=== PATIENT | male | born 1985 | race Caucasian/White ===

== ENCOUNTER 2017-07-26 23:05 | Emergency (ER) | payer MEDICAID ==
[2017-07-26] MEDS ORDERED: Aspirin 81 mg CHEW TAB* 81 MG TAB.CHEW PO ONE (23:48)
[2017-07-26 23:50] LABS: ABS Basophils 0 10^3/ul (0-0.2); ABS Eosinophils 0.1 10^3/ul (0-0.6); ABS Lymphocytes 1.9 10^3/ul (1.0-4.8); ABS Monocytes 0.5 10^3/ul (0-0.8); ABS Neutrophils 2.1 10^3/ul (1.5-7.7); ABS Nucleated RBC 0 10^3/ul; Eosinophil % 1.4 % (0-6); Hematocrit 38 % (42-52); Hemoglobin 13.1 g/dl (14.0-18.0); Mean Corpuscular HGB Conc 34 g/dl (31-36); Mean Corpuscular Hemoglobin 30 pg (27-31); Mean Corpuscular Volume 89 fL (80-94); Mean Platelet Volume 7.4 um3 (7.4-10.4); Nucleated Red Blood Cells % 0; Platelet Count 238 10^3/ul (150-450); Red Cell Distribution Width 13 % (10.5-15); White Blood Count 4.6 10^3/ul (3.5-10.8)
[2017-07-26 23:58] LABS: INR 1.06 (0.77-1.02)
[2017-07-27 00:07] LABS: EGFR Non-African American 88.1 (>60)
[2017-07-27] MEDS ORDERED: NS 0.9% 1000 ML* 1,000 ML IV ONE (00:14)
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
[2017-07-27 00:51] LABS: Urine Appearance Clear; Urine Blood Negative (Negative); Urine Color Yellow; Urine Ketones Negative (Negative); Urine Protein Negative (Negative); Urine Specific Gravity 1.024 (1.010-1.030); Urine Urobilinogen Negative (Negative)
[2017-07-27 01:28] VITALS: BP 142/91
--- NOTE | 2017-07-27 08:32 | RAD ---
INDICATION: Chest pain, shortness of breath, tobacco use. COMPARISON: June 27, 2015 TECHNIQUE: Dual energy PA and routine lateral views of the chest were obtained. REPORT: Unchanged mild pleural parenchymal scarring at the peripheral RIGHT lung base without concern. Elevated lung volumes. No suspicious focal pulmonary lesion, alveolar consolidation, pleural effusion, pneumothorax. The heart, pulmonary vasculature, and mediastinal contours are unremarkable. Unremarkable soft tissue contours and osseous structures. IMPRESSION: Elevated lung volumes suggest obstructive lung disease. No acute cardiopulmonary process evident.
== END 2017-07-27 01:26 | disposition home or self-care (01) ==
LOC: ED 23:05
DX: F14.90 Cocaine use, unspecified, uncomplicated (principal); R07.9 Chest pain, unspecified; F17.210 Nicotine dependence, cigarettes, uncomplicated
CPT/HCPCS: 36415; 71046; 80053; 80307; 81003; 82550; 83605; 83735; 83880; 84484; 85025; 85379; 85610; 93005; 99284; A9270-GY

== ENCOUNTER 2017-12-31 18:52 | Emergency (ER) | payer MEDICAID ==
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
[2017-12-31 19:28] VITALS: BP 169/94
[2017-12-31] MEDS ORDERED: Lidocaine 2% W/EPI 1:100,000* 20 ML MDV INJ ONE (19:31)
[2017-12-31] MEDS ORDERED: Amoxicillin PO (*) 500 MG CAP PO ONE (19:40)
--- NOTE | 2017-12-31 20:03 | UC ---
- Progress Note Progress Note: I supervised the care of the physician assistant program manager and I performed a history of physical on this patient. I performed the patient's procedure. History: Dental pain with multiple erosions Physical exam: Multiple revisions and previous extractions through the right lower jaw. The remaining molar is eroded to the gumline. There is some gingival hyperplasia Plan: NSAID, antibiotic and dental block performed by me Procedure: Inferior alveolar nerve block for dental pain Description: A timeout was performed. An inferior alveolar nerve block was performed with a total left 2.5 cc of 2% lidocaine with epinephrine. He tolerated this well with pain relief. There were no complications. Course/Dx - Diagnoses Provider Diagnoses: Pain due to dental caries Discharge - Sign-Out/Discharge Documenting (check all that apply): Patient Departure All imaging exams completed and their final reports reviewed: No Studies - Discharge Plan Condition: Stable Disposition: HOME Prescriptions: Amoxicillin PO (*) [Amoxicillin 875 MG (*)] 875 mg PO BID 10 Days #20 tab Patient Education Materials: Toothache (ED) Referrals: Shanon Kraft TURBINE TECHNICIAN [Primary Care Provider] - If Needed Additional Instructions: FOLLOW UP WITH DENTAL SOON POSSIBLE-CALL IN AM. LIST OF DENTISTS PROVIDED. - Billing Disposition and Condition Condition: STABLE Disposition: Home - Attestation Statements Document Initiated by Scribe: Natalya
== END 2017-12-31 20:14 | disposition home or self-care (01) ==
LOC: UCCORT 18:52
DX: K02.9 Dental caries, unspecified (principal); I25.2 Old myocardial infarction; F17.210 Nicotine dependence, cigarettes, uncomplicated
CPT/HCPCS: 99212; A9270-GY; G0463

== ENCOUNTER 2022-04-22 14:58 | Inpatient (IN) ==
[2022-04-22] MEDS ORDERED: Lactated Ringers 1000 ml BAG 1,000 ML IV ONE (15:26)
[2022-04-22] MEDS ORDERED: Cefepime 1 GM in Dextrose 1 GM/50 ML BAG IV ONE ×2 (16:51→23:27)
[2022-04-22] MEDS ORDERED: Vancomycin 1,500 MG in NS 0.9% 250 ml 250 ML IVPB ONE (16:51)
[2022-04-22 16:53] LABS: Venous Bicarbonate HCO3 29.4 mmol/L (24-28)
[2022-04-22 16:54] LABS: ABS Lymphocytes 1.2 10^3/ul (1.0-4.8); ABS Monocytes 1.2 10^3/ul (0-0.8); Eosinophil % 0.4 %; Hematocrit 30 % (42-52); Hemoglobin 10.3 g/dL (14.0-18.0); Mean Corpuscular HGB Conc 34 g/dL (31-36); Mean Corpuscular Hemoglobin 30 pg (27-31); Mean Corpuscular Volume 87 fL (80-94); Mean Platelet Volume 7.5 fL (7.4-10.4); Platelet Count 351 10^3/uL (150-450); Red Blood Count 3.48 10^6 /uL (4.18-5.48); Red Cell Distribution Width 13 % (10-15); White Blood Count 13.5 10^3/uL (3.5-10.8)
[2022-04-22 17:10] LABS: Activated Partial Thrombo Time 33.7 seconds (26.0-38.0); INR 1.67 (0.88-1.18)
[2022-04-22 17:40] LABS: Albumin 2.9 g/dL (3.2-5.2); Albumin/Globulin Ratio 0.9 (1-3); C Reactive Protein 190.16 mg/L (<8.01); Globulin 3.2 g/dL (2-4); Potassium 3.7 mmol/L (3.5-5.0); Total Bilirubin 0.4 mg/dL (0.2-1.0); Total Protein 6.1 g/dL (6.4-8.9); eGFR CKD-EPI 114.5 (>60)
[2022-04-22] MEDS ORDERED: Iohexol 350 (CONTRAST) 500 ML MDV IV ONE (17:43)
[2022-04-22 18:16] LABS: High Sensitivity Troponin 1 Hr 3 pg/mL (<20)
[2022-04-22] MEDS: Enoxaparin 40 MG/0.4 ML SYR SUBCUT SCH (21:49)
[2022-04-22] MEDS: metroNIDAZOLE IV 500 MG/100ML 500 MG/100 ML BAG IVPB SCH (21:49)
[2022-04-22] MEDS ORDERED: Buprenorp/Nalox 8-2 MG FILM SL FILM ONE (23:23)
[2022-04-22] MEDS ORDERED: Buprenorp/Nalox 4-1 MG FILM SL FILM ONE (23:23)
[2022-04-23 00:26] LABS: High Sensitivity Troponin 3 Hr 6 pg/mL (<20)
[2022-04-23] MEDS ORDERED: Vancomycin 1,500 MG in NS 0.9% 250 ml 250 ML IVPB ONE (03:28)
[2022-04-23] MEDS ORDERED: Vancomycin per Pharmacy 1 EA NOTE FOLLOW UP PRN (03:52)
[2022-04-23] MEDS: Buprenorp/Nalox 8-2 MG FILM SL FILM SCH ×2 (07:36→17:19)
[2022-04-23] MEDS: metroNIDAZOLE IV 500 MG/100ML 500 MG/100 ML BAG IVPB SCH ×3 (07:38→21:44)
[2022-04-23 09:00] LABS: ABS Eosinophils 0.1 10^3/ul (0-0.6); ABS Lymphocytes 1.2 10^3/ul (1.0-4.8); ABS Monocytes 0.9 10^3/ul (0-0.8); ABS Neutrophils 8.7 10^3/ul (1.5-7.7); Eosinophil % 0.7 %; Hematocrit 29 % (42-52); Lymphocyte % 10.8 %; Mean Corpuscular HGB Conc 34 g/dL (31-36); Mean Corpuscular Hemoglobin 30 pg (27-31); Mean Corpuscular Volume 87 fL (80-94); Mean Platelet Volume 7.2 fL (7.4-10.4); Platelet Count 327 10^3/uL (150-450); Red Blood Count 3.35 10^6 /uL (4.18-5.48); Red Cell Distribution Width 13 % (10-15); White Blood Count 10.9 10^3/uL (3.5-10.8)
[2022-04-23 09:33] LABS: Albumin 2.4 g/dL (3.2-5.2); C Reactive Protein 174.71 mg/L (<8.01); Calcium 7.3 mg/dL (8.6-10.3); Globulin 2.5 g/dL (2-4); Magnesium 1.8 mg/dL (1.9-2.7); Potassium 3.6 mmol/L (3.5-5.0); Total Bilirubin 0.4 mg/dL (0.2-1.0); Total Protein 4.9 g/dL (6.4-8.9); eGFR CKD-EPI 123.7 (>60)
[2022-04-23] MEDS: Cefepime 2 GM in Dextrose 2 GM/50 ML BAG IV SCH ×2 (11:32→23:27)
[2022-04-23] MEDS: Vancomycin 1,250 MG in NS 0.9% 250 ml 250 ML IVPB SCH (17:19)
[2022-04-23] MEDS: Enoxaparin 40 MG/0.4 ML SYR SUBCUT SCH (21:57)
[2022-04-24] MEDS: Vancomycin 1,250 MG in NS 0.9% 250 ml 250 ML IVPB SCH ×3 (00:23→15:51)
[2022-04-24] MEDS: metroNIDAZOLE IV 500 MG/100ML 500 MG/100 ML BAG IVPB SCH ×3 (05:01→21:31)
[2022-04-24] MEDS ORDERED: Vancomycin Trough Check NOTE FOLLOW UP ONE (07:30)
[2022-04-24] MEDS: Buprenorp/Nalox 8-2 MG FILM SL FILM SCH ×2 (09:12→15:51)
[2022-04-24 14:02] LABS: ABS Eosinophils 0.1 10^3/ul (0-0.6); ABS Monocytes 0.7 10^3/ul (0-0.8); Eosinophil % 0.6 %; Hematocrit 31 % (42-52); Hemoglobin 10.6 g/dL (14.0-18.0); Lymphocyte % 7.8 %; Mean Corpuscular HGB Conc 34 g/dL (31-36); Mean Corpuscular Hemoglobin 29 pg (27-31); Mean Corpuscular Volume 87 fL (80-94); Mean Platelet Volume 7.1 fL (7.4-10.4); Platelet Count 397 10^3/uL (150-450); Red Blood Count 3.63 10^6 /uL (4.18-5.48); Red Cell Distribution Width 13 % (10-15); White Blood Count 12.8 10^3/uL (3.5-10.8)
[2022-04-24] MEDS: Cefepime 2 GM in Dextrose 2 GM/50 ML BAG IV SCH ×2 (14:35→22:54)
[2022-04-24 14:40] LABS: C Reactive Protein 141.55 mg/L (<8.01); Calcium 7.6 mg/dL (8.6-10.3); Magnesium 1.9 mg/dL (1.9-2.7); Potassium 4.2 mmol/L (3.5-5.0); eGFR CKD-EPI 128.7 (>60)
[2022-04-24] MEDS: BUPRENORPHINE NALOXONE SL SCH ×2 (14:47→14:48)
[2022-04-24] MEDS: Enoxaparin 40 MG/0.4 ML SYR SUBCUT SCH (21:31)
[2022-04-25] MEDS: metroNIDAZOLE IV 500 MG/100ML 500 MG/100 ML BAG IVPB SCH ×2 (05:18→14:14)
[2022-04-25] MEDS ORDERED: Vancomycin Trough Check NOTE FOLLOW UP ONE (07:30)
[2022-04-25] MEDS: Buprenorp/Nalox 8-2 MG FILM SL FILM SCH (10:21)
[2022-04-25] MEDS: Vancomycin 1,250 MG in NS 0.9% 250 ml 250 ML IVPB SCH ×3 (10:22→15:28)
[2022-04-25 11:51] VITALS: BP 102/59
[2022-04-25] MEDS: Cefepime 2 GM in Dextrose 2 GM/50 ML BAG IV SCH (14:13)
[2022-04-26] MEDS ORDERED: Vancomycin Trough Check NOTE FOLLOW UP ONE (07:30)
[2022-04-27 15:34] LABS: Fungitell Qualitative Result Negative (Negative); Fungitell Quantitative Value <31 pg/mL (<60 pg/mL)
== END 2022-04-25 16:40 | disposition home or self-care (01) | DRG 139 ==
LOC: EDHOLD 14:58 → ED 14:58 → SUATTDRO 20:45 → EDHOLD 23:43 → SUATTDRO 04-23 01:50 → MED 04-23 15:20
PROVIDERS: ADMIT Internal Medicine; ATTEND Internal Medicine

== ENCOUNTER 2022-11-30 12:57 | Inpatient (IN) ==
[2022-11-30] MEDS ORDERED: Ondansetron 4 mg VIAL 2 MG/ML 2 ml VIAL IV PRN ×2 (14:25→15:24)
[2022-11-30] MEDS ORDERED: HYDROcodone/ACETAMIN 5/325 mg TAB PO PRN ×2 (14:32→15:24)
[2022-11-30] MEDS ORDERED: Lidocaine 2% PF 5 ML VIAL ONE (14:45)
[2022-11-30] MEDS ORDERED: Midazolam 2 mg/2 ml VIAL 1 mg/ml 2 ml VIAL (2 mg) ONE (14:45)
[2022-11-30] MEDS ORDERED: Ondansetron 4 mg VIAL 2 MG/ML 2 ml VIAL ONE (14:45)
[2022-11-30] MEDS ORDERED: Propofol 10 MG/ML 20 ML BTL ONE (14:45)
[2022-11-30] MEDS ORDERED: Dexamethasone IV 4 MG/ML VIAL 1 ml VIAL ONE (14:45)
[2022-11-30] MEDS ORDERED: fentaNYL 100 mcg/2 ml 50 MCG/ML VIAL ONE ×4 (14:45→18:13)
[2022-11-30] MEDS ORDERED: ceFAZolin 2 GM in NS PREMIX 2 GM/100 ML BAG IVPB ONE (14:51)
[2022-11-30] MEDS ORDERED: Rocuronium 50 mg VIAL 10 mg/ml 5 ml VIAL (50 mg) ONE (15:18)
[2022-11-30] MEDS ORDERED: fentaNYL 100 mcg/2 ml 50 MCG/ML VIAL IV PRN (15:24)
[2022-11-30] MEDS ORDERED: Metoclopramide 5 MG/ML VIAL (10 mg) IV PRN (15:24)
[2022-11-30] MEDS ORDERED: Naloxone 0.4 mg VIAL 0.4 mg/ml 1 ml VIAL IV PRN (15:24)
[2022-11-30 16:03] LABS: Rapid COVID-19 Molecular Undetected (Undetected)
[2022-11-30] MEDS ORDERED: Acetaminophen IV 1 GM/100ML 1,000 MG/100 ML BAG IV ONE (16:11)
[2022-11-30] MEDS ORDERED: Bupivacaine 0.5% 50 ML MDV VIAL ONE (16:54)
[2022-11-30] MEDS ORDERED: HYDROmorphone 0.5 MG/0.5 ML SYRINGE ONE (17:21)
[2022-11-30] MEDS ORDERED: ROPIVACAINE 5 MG/ML 30 ML BTL (0.5%) ONE (17:56)
[2022-11-30] MEDS: fentaNYL 100 mcg/2 ml 50 MCG/ML VIAL IV PRN ×7 (18:00→18:41)
[2022-11-30] MEDS ORDERED: oxyCODONE/Acetamin 5/325 mg TAB ONE (18:32)
[2022-11-30] MEDS: oxyCODONE/Acetamin 5/325 mg TAB PO PRN (18:33)
[2022-11-30] MEDS ORDERED: Vancomycin per Pharmacy 1 EA NOTE FOLLOW UP PRN (20:21)
[2022-11-30] MEDS: cefTRIAXone 1 gm/50 mL D5W 1 GM/50 ML BAG IV SCH (20:36)
[2022-11-30] MEDS ORDERED: Vancomycin 1,250 MG in NS 0.9% 250 ml 250 ML IVPB ONE (21:00)
[2022-12-01] MEDS: oxyCODONE/Acetamin 5/325 mg TAB PO PRN ×6 (00:20→21:38)
[2022-12-01] MEDS ORDERED: Morphine 2 MG/ML SYRINGE IV PRN ×2 (08:34→14:21)
[2022-12-01] MEDS ORDERED: oxyCODONE/Acetamin 5/325 mg TAB ONE (08:46)
[2022-12-01] MEDS ORDERED: Morphine 2 MG/ML SYRINGE ONE ×2 (08:46→14:34)
[2022-12-01 09:42] LABS: ABS Basophils 0.1 10^3/uL (0.0-0.1); ABS Eosinophils 0.1 10^3/uL (0.0-0.5); ABS Lymphocytes 1.7 10^3/uL (1.0-4.8); ABS Monocytes 0.8 10^3/uL (0.0-1.1); ABS Neutrophils 7.3 10^3/uL (1.5-7.6); ABS Nucleated RBC 0.01 10^3/ul; Eosinophil % 0.7 %; Hematocrit 22.3 % (38-53); Hemoglobin 7.8 g/dL (13.2-16.3); Lymphocyte % 16.7 %; Mean Corpuscular Hemoglobin 30.3 pg (27-33); Mean Corpuscular Hgb Conc 34.9 g/dL (31-36); Mean Corpuscular Volume 86.8 fL (80-97); Nucleated Red Blood Cells % 0.1 /100 WBC (0.0-0.4); Platelet Count 412 10^3/uL (150-450); Red Blood Count 2.57 10^6/uL (4.06-5.63); Red Cell Distribution Width 14.5 % (12-17)
[2022-12-01] MEDS: Vancomycin 750 MG in NS 0.9% 250 ML IVPB SCH ×3 (09:52→23:43)
[2022-12-01 09:57] LABS: Albumin 2.5 g/dL (3.2-5.2); Albumin/Globulin Ratio 0.6 (1-3); Creatinine, Serum 0.62 mg/dL (0.67-1.17); Globulin 4.4 g/dL (2-4); Potassium 3.4 mmol/L (3.5-5.0); Total Bilirubin 0.2 mg/dL (0.2-1.0); Total Protein 6.9 g/dL (6.4-8.9); eGFR CKD-EPI 124.7 (>60)
[2022-12-01] MEDS ORDERED: Potassium Chlor 20 meq TAB.ER PO ONE (13:49)
[2022-12-01] MEDS ORDERED: Morphine 4 MG/ML VIAL (1 ml) ONE (15:35)
[2022-12-01] MEDS: cefTRIAXone 1 gm/50 mL D5W 1 GM/50 ML BAG IV SCH (21:33)
[2022-12-01] MEDS ORDERED: Nicotine Lozenge mini 4 MG LOZNG.MINI MT PRN (22:39)
[2022-12-01] MEDS ORDERED: Nicotine GUM 4MG FRUIT FLAVOR PO PRN (22:39)
[2022-12-02] MEDS: oxyCODONE/Acetamin 5/325 mg TAB PO PRN ×4 (02:07→23:52)
[2022-12-02] MEDS ORDERED: Vancomycin Trough Check NOTE FOLLOW UP ONE (07:30)
[2022-12-02 08:21] LABS: ABS Basophils 0.1 10^3/uL (0.0-0.1); ABS Eosinophils 0.1 10^3/uL (0.0-0.5); ABS Lymphocytes 1.4 10^3/uL (1.0-4.8); ABS Monocytes 0.8 10^3/uL (0.0-1.1); ABS Neutrophils 8.9 10^3/uL (1.5-7.6); ABS Nucleated RBC 0.01 10^3/ul; Eosinophil % 0.5 %; Hematocrit 25.6 % (38-53); Hemoglobin 8.7 g/dL (13.2-16.3); Lymphocyte % 12.1 %; Mean Corpuscular Hemoglobin 29.6 pg (27-33); Mean Corpuscular Hgb Conc 33.9 g/dL (31-36); Mean Corpuscular Volume 87.1 fL (80-97); Platelet Count 519 10^3/uL (150-450); Red Blood Count 2.94 10^6/uL (4.06-5.63); Red Cell Distribution Width 14.6 % (12-17); White Blood Count 11.2 10^3/uL (3.6-10.2)
[2022-12-02 08:29] LABS: Anion Gap 12 mmol/L (2-16); Blood Urea Nitrogen 5 mg/dL (6-24); C Reactive Protein 174.71 mg/L (<8.01); CO2 Carbon Dioxide 25 mmol/L (22-32); Calcium 8.5 mg/dL (8.6-10.3); Chloride 97 mmol/L (101-111); Creatinine, Serum 0.63 mg/dL (0.67-1.17); Glucose 97 mg/dL (70-100); Sodium 134 mmol/L (135-145); eGFR CKD-EPI 124.1 (>60)
[2022-12-02 09:15] LABS: % Iron Saturation 8 % (15-55); .Transferrin 173 mg/dL (203-362); Iron < 20 ug/dL (50-212); Total Iron Binding Capacity 242 mcg/dL (250-450); Unsaturated Iron Binding 222 ug/dL
[2022-12-02] MEDS: Vancomycin 750 MG in NS 0.9% 250 ML IVPB SCH (09:23)
[2022-12-02 09:37] LABS: Ferritin 243.7 ng/mL (24-336)
[2022-12-02] MEDS ORDERED: Vancomycin 1000 MG in NS 0.9% 250 ML IVPB SCH (15:00)
[2022-12-02] MEDS: Vancomycin 1000 MG in NS 0.9% 250 ML IVPB SCH (18:07)
[2022-12-02] MEDS: cefTRIAXone 1 gm/50 mL D5W 1 GM/50 ML BAG IV SCH (20:08)
[2022-12-03] MEDS: Vancomycin 1000 MG in NS 0.9% 250 ML IVPB SCH ×3 (00:41→13:18)
[2022-12-03] MEDS: oxyCODONE/Acetamin 5/325 mg TAB PO PRN ×3 (06:41→21:10)
[2022-12-03] MEDS ORDERED: Morphine 2 MG/ML SYRINGE IV ONE (08:19)
[2022-12-03] MEDS ORDERED: Lidocaine 1% MPF 5 ML VIAL INJ ONE (08:36)
[2022-12-03] MEDS ORDERED: Vancomycin Trough Check NOTE FOLLOW UP ONE (11:30)
[2022-12-03 16:46] LABS: ABS Basophils 0.1 10^3/uL (0.0-0.1); ABS Eosinophils 0.1 10^3/uL (0.0-0.5); ABS Lymphocytes 1.7 10^3/uL (1.0-4.8); ABS Monocytes 0.6 10^3/uL (0.0-1.1); Eosinophil % 1.9 %; Hematocrit 26.7 % (38-53); Hemoglobin 8.9 g/dL (13.2-16.3); Lymphocyte % 22.8 %; Mean Corpuscular Hemoglobin 29.4 pg (27-33); Mean Corpuscular Hgb Conc 33.3 g/dL (31-36); Mean Corpuscular Volume 88.2 fL (80-97); Mean Platelet Volume 6.5 fL (7.5-11.2); Nucleated Red Blood Cells % 0.1 /100 WBC (0.0-0.4); Platelet Count 645 10^3/uL (150-450); Red Blood Count 3.02 10^6/uL (4.06-5.63); Red Cell Distribution Width 14.9 % (12-17); White Blood Count 7.6 10^3/uL (3.6-10.2)
[2022-12-03] MEDS ORDERED: ROPIVACAINE 5 MG/ML 30 ML BTL (0.5%) ONE (16:54)
[2022-12-03] MEDS ORDERED: Midazolam 5 mg/5 ml VIAL 1 mg/ml 5 ml VIAL (5 mg) ONE (16:55)
[2022-12-03] MEDS ORDERED: fentaNYL 100 mcg/2 ml 50 MCG/ML VIAL ONE ×2 (16:55→17:34)
[2022-12-03] MEDS ORDERED: Lidocaine 2% PF 5 ML VIAL ONE (17:34)
[2022-12-03] MEDS ORDERED: Propofol 10 MG/ML 20 ML BTL ONE (17:34)
[2022-12-03] MEDS ORDERED: Midazolam 2 mg/2 ml VIAL 1 mg/ml 2 ml VIAL (2 mg) ONE (17:35)
[2022-12-03] MEDS ORDERED: Bupivacaine 0.5% 50 ML MDV VIAL ONE (18:03)
[2022-12-03] MEDS ORDERED: Sevoflurane BOTTLE ONE (18:27)
[2022-12-03] MEDS ORDERED: Naloxone 0.4 mg VIAL 0.4 mg/ml 1 ml VIAL IV PRN (18:34)
[2022-12-03] MEDS ORDERED: oxyCODONE/Acetamin 5/325 mg TAB PO PRN (18:34)
[2022-12-03] MEDS ORDERED: HYDROmorphone 1 MG/1 ML SYRINGE IV PRN (18:34)
[2022-12-03] MEDS ORDERED: Ondansetron 4 mg VIAL 2 MG/ML 2 ml VIAL ONE (18:53)
[2022-12-03] MEDS ORDERED: Dexamethasone IV 4 MG/ML VIAL 1 ml VIAL ONE (18:53)
[2022-12-03] MEDS ORDERED: HYDROmorphone 1 MG/1 ML SYRINGE ONE (20:04)
[2022-12-03] MEDS ORDERED: LACTATED RINGERS 1000 ML BAG IV SCH (22:00)
[2022-12-04] MEDS: Vancomycin 1000 MG in NS 0.9% 250 ML IVPB SCH ×5 (01:13→20:15)
[2022-12-04] MEDS: oxyCODONE/Acetamin 5/325 mg TAB PO PRN ×4 (03:11→22:14)
[2022-12-04 07:05] LABS: ABS Basophils 0.1 10^3/uL (0.0-0.1); ABS Lymphocytes 1.5 10^3/uL (1.0-4.8); ABS Monocytes 0.5 10^3/uL (0.0-1.1); ABS Neutrophils 6.3 10^3/uL (1.5-7.6); ABS Nucleated RBC 0.01 10^3/ul; Eosinophil % 0.5 %; Hemoglobin 9.5 g/dL (13.2-16.3); Lymphocyte % 17.7 %; Mean Corpuscular Hemoglobin 29.5 pg (27-33); Mean Corpuscular Hgb Conc 33.8 g/dL (31-36); Mean Corpuscular Volume 87.3 fL (80-97); Mean Platelet Volume 6.8 fL (7.5-11.2); Nucleated Red Blood Cells % 0.1 /100 WBC (0.0-0.4); Platelet Count 620 10^3/uL (150-450); Red Blood Count 3.21 10^6/uL (4.06-5.63); Red Cell Distribution Width 14.8 % (12-17); White Blood Count 8.5 10^3/uL (3.6-10.2)
[2022-12-04 07:18] LABS: C Reactive Protein 101.35 mg/L (<8.01); Creatinine, Serum 0.68 mg/dL (0.67-1.17); Potassium 4.8 mmol/L (3.5-5.0); eGFR CKD-EPI 121.3 (>60)
[2022-12-04] MEDS ORDERED: Vancomycin Trough Check NOTE FOLLOW UP ONE (11:30)
[2022-12-04] MEDS: Enoxaparin 40 MG/0.4 ML SYR SUBCUT SCH (11:53)
[2022-12-05] MEDS: Vancomycin 1000 MG in NS 0.9% 250 ML IVPB SCH ×4 (03:53→20:52)
[2022-12-05] MEDS: oxyCODONE/Acetamin 5/325 mg TAB PO PRN ×5 (03:58→23:16)
[2022-12-05] MEDS: Enoxaparin 40 MG/0.4 ML SYR SUBCUT SCH (13:09)
[2022-12-05] MEDS ORDERED: Vancomycin Trough Check NOTE FOLLOW UP ONE (20:30)
[2022-12-06] MEDS: Vancomycin 1000 MG in NS 0.9% 250 ML IVPB SCH ×3 (03:03→15:34)
[2022-12-06] MEDS: oxyCODONE/Acetamin 5/325 mg TAB PO PRN ×2 (05:41→21:29)
[2022-12-06] MEDS ORDERED: Vancomycin Trough Check NOTE FOLLOW UP ONE (08:30)
[2022-12-06 09:23] LABS: Hemoglobin 9.4 g/dL (13.2-16.3); Mean Corpuscular Hemoglobin 29.6 pg (27-33); Mean Corpuscular Hgb Conc 33.7 g/dL (31-36); Mean Corpuscular Volume 87.7 fL (80-97); Mean Platelet Volume 6.4 fL (7.5-11.2); Platelet Count 558 10^3/uL (150-450); Red Blood Count 3.19 10^6/uL (4.06-5.63); Red Cell Distribution Width 14.6 % (12-17); White Blood Count 7.5 10^3/uL (3.6-10.2)
[2022-12-06 09:44] LABS: C Reactive Protein 26.66 mg/L (<8.01); Calcium 9.1 mg/dL (8.6-10.3); Creatinine, Serum 0.65 mg/dL (0.67-1.17); Potassium 4.3 mmol/L (3.5-5.0); eGFR CKD-EPI 122.9 (>60)
[2022-12-06] MEDS: Enoxaparin 40 MG/0.4 ML SYR SUBCUT SCH (12:14)
[2022-12-07] MEDS: Vancomycin 1,500 MG in NS 0.9% 250 ml 250 ML IVPB SCH ×2 (06:15→19:30)
[2022-12-07] MEDS: oxyCODONE/Acetamin 5/325 mg TAB PO PRN ×2 (06:20→18:40)
[2022-12-07 06:32] LABS: Hematocrit 27.8 % (38-53); Hemoglobin 9.4 g/dL (13.2-16.3); Mean Corpuscular Hemoglobin 29.5 pg (27-33); Mean Corpuscular Hgb Conc 33.7 g/dL (31-36); Mean Corpuscular Volume 87.4 fL (80-97); Mean Platelet Volume 6.4 fL (7.5-11.2); Platelet Count 567 10^3/uL (150-450); Red Blood Count 3.18 10^6/uL (4.06-5.63); Red Cell Distribution Width 14.7 % (12-17); White Blood Count 7.7 10^3/uL (3.6-10.2)
[2022-12-07 07:08] LABS: Calcium 8.8 mg/dL (8.6-10.3); Potassium 4.5 mmol/L (3.5-5.0)
[2022-12-07 07:14] LABS: C Reactive Protein 19.09 mg/L (<8.01); Creatinine, Serum 0.62 mg/dL (0.67-1.17); eGFR CKD-EPI 124.7 (>60)
[2022-12-07] MEDS: Enoxaparin 40 MG/0.4 ML SYR SUBCUT SCH (13:54)
[2022-12-08] MEDS: oxyCODONE/Acetamin 5/325 mg TAB PO PRN ×2 (02:43→09:41)
[2022-12-08 05:57] LABS: Hematocrit 23.8 % (38-53); Hemoglobin 8.1 g/dL (13.2-16.3); Mean Corpuscular Hemoglobin 29.9 pg (27-33); Mean Corpuscular Volume 87.9 fL (80-97); Mean Platelet Volume 6.1 fL (7.5-11.2); Platelet Count 551 10^3/uL (150-450); Red Cell Distribution Width 14.6 % (12-17); White Blood Count 10.3 10^3/uL (3.6-10.2)
[2022-12-08 06:13] LABS: C Reactive Protein 14.22 mg/L (<8.01); Calcium 8.9 mg/dL (8.6-10.3); Creatinine, Serum 0.66 mg/dL (0.67-1.17); Potassium 3.9 mmol/L (3.5-5.0); eGFR CKD-EPI 122.4 (>60)
[2022-12-08] MEDS: Vancomycin 1,500 MG in NS 0.9% 250 ml 250 ML IVPB SCH ×2 (09:22→17:59)
[2022-12-08] MEDS: Enoxaparin 40 MG/0.4 ML SYR SUBCUT SCH (12:42)
[2022-12-09] MEDS: Vancomycin 1,500 MG in NS 0.9% 250 ml 250 ML IVPB SCH ×2 (06:06→18:40)
[2022-12-09 06:24] LABS: Hematocrit 27.9 % (38-53); Hemoglobin 9.4 g/dL (13.2-16.3); Mean Corpuscular Hemoglobin 29.4 pg (27-33); Mean Corpuscular Hgb Conc 33.5 g/dL (31-36); Mean Corpuscular Volume 87.6 fL (80-97); Mean Platelet Volume 6.3 fL (7.5-11.2); Platelet Count 491 10^3/uL (150-450); Red Blood Count 3.19 10^6/uL (4.06-5.63); Red Cell Distribution Width 14.7 % (12-17); White Blood Count 8.2 10^3/uL (3.6-10.2)
[2022-12-09 06:40] LABS: C Reactive Protein 17.42 mg/L (<8.01); Calcium 8.9 mg/dL (8.6-10.3); Creatinine, Serum 0.64 mg/dL (0.67-1.17); eGFR CKD-EPI 123.5 (>60)
[2022-12-09] MEDS: Enoxaparin 40 MG/0.4 ML SYR SUBCUT SCH (12:40)
[2022-12-10] MEDS ORDERED: Vancomycin Trough Check NOTE FOLLOW UP ONE (06:00)
[2022-12-10 06:36] LABS: Hematocrit 28.4 % (38-53); Hemoglobin 9.7 g/dL (13.2-16.3); Mean Corpuscular Hemoglobin 29.7 pg (27-33); Mean Corpuscular Hgb Conc 34.1 g/dL (31-36); Mean Corpuscular Volume 87.2 fL (80-97); Mean Platelet Volume 6.2 fL (7.5-11.2); Platelet Count 481 10^3/uL (150-450); Red Blood Count 3.26 10^6/uL (4.06-5.63); Red Cell Distribution Width 14.9 % (12-17); White Blood Count 9.7 10^3/uL (3.6-10.2)
[2022-12-10] MEDS: Vancomycin 1,500 MG in NS 0.9% 250 ml 250 ML IVPB SCH (07:52)
[2022-12-10] MEDS: Enoxaparin 40 MG/0.4 ML SYR SUBCUT SCH (12:47)
[2022-12-10] MEDS: Vancomycin 1,250 MG in NS 0.9% 250 ml 250 ML IVPB SCH (17:47)
[2022-12-10] MEDS ORDERED: Triamcinolone 0.025% OINT 15 GM TUBE TOPICAL SCH (21:00)
[2022-12-10 21:58] LABS: C Reactive Protein 16.71 mg/L (<8.01); Calcium 9.1 mg/dL (8.6-10.3); Creatinine, Serum 0.7 mg/dL (0.67-1.17); Potassium 4.3 mmol/L (3.5-5.0); eGFR CKD-EPI 120.2 (>60)
[2022-12-11] MEDS: Vancomycin 1,250 MG in NS 0.9% 250 ml 250 ML IVPB SCH ×2 (01:15→08:57)
[2022-12-11 06:24] LABS: Hematocrit 27.8 % (38-53); Hemoglobin 9.4 g/dL (13.2-16.3); Mean Corpuscular Hemoglobin 29.3 pg (27-33); Mean Corpuscular Hgb Conc 33.7 g/dL (31-36); Mean Corpuscular Volume 86.9 fL (80-97); Mean Platelet Volume 6.2 fL (7.5-11.2); Platelet Count 411 10^3/uL (150-450); Red Cell Distribution Width 14.7 % (12-17); White Blood Count 7.3 10^3/uL (3.6-10.2)
[2022-12-11 06:38] LABS: C Reactive Protein 17.49 mg/L (<8.01); Calcium 9.1 mg/dL (8.6-10.3); Creatinine, Serum 0.66 mg/dL (0.67-1.17); Potassium 4.1 mmol/L (3.5-5.0); eGFR CKD-EPI 122.4 (>60)
[2022-12-11 10:04] VITALS: BP 145/88
[2022-12-12] MEDS ORDERED: Vancomycin Trough Check NOTE FOLLOW UP ONE (08:30)
== END 2022-12-11 12:17 | disposition swing bed (61) | DRG 711 ==
LOC: SSU 13:33 → MED 12-05 23:08
PROVIDERS: ADMIT Orthopaedic Surgery; ATTEND Hospitalist

== ENCOUNTER 2022-12-11 12:31 | Inpatient (IN) ==
[2022-12-11] MEDS ORDERED: Vancomycin per Pharmacy 1 EA NOTE FOLLOW UP SCH (13:00)
[2022-12-11] MEDS: Enoxaparin 40 MG/0.4 ML SYR SUBCUT SCH (14:48)
[2022-12-11] MEDS: Vancomycin 1,250 MG in NS 0.9% 250 ml 250 ML IVPB SCH (17:36)
[2022-12-11] MEDS ORDERED: Nicotine GUM 4MG FRUIT FLAVOR PO PRN (18:59)
[2022-12-11] MEDS ORDERED: Nicotine Lozenge mini 2 MG LOZNG.MINI MT PRN (18:59)
[2022-12-11] MEDS ORDERED: Ondansetron ODT 4 mg TAB 4 MG TAB PO PRN (19:00)
[2022-12-11] MEDS: Triamcinolone 0.025% OINT 15 GM TUBE TOPICAL SCH (22:01)
[2022-12-12] MEDS: Vancomycin 1,250 MG in NS 0.9% 250 ml 250 ML IVPB SCH ×3 (00:25→16:51)
[2022-12-12 06:56] LABS: Creatinine, Serum 0.66 mg/dL (0.67-1.17); eGFR CKD-EPI 122.4 (>60)
[2022-12-12] MEDS ORDERED: Vancomycin Trough Check NOTE FOLLOW UP ONE (08:30)
[2022-12-12] MEDS: Enoxaparin 40 MG/0.4 ML SYR SUBCUT SCH (15:58)
[2022-12-12] MEDS: Triamcinolone 0.025% OINT 15 GM TUBE TOPICAL SCH (20:23)
[2022-12-13] MEDS: Vancomycin 1,250 MG in NS 0.9% 250 ml 250 ML IVPB SCH ×3 (01:15→17:43)
[2022-12-13 11:04] VITALS: BP 114/88
[2022-12-13] MEDS: Enoxaparin 40 MG/0.4 ML SYR SUBCUT SCH (17:41)
[2022-12-13] MEDS: Triamcinolone 0.025% OINT 15 GM TUBE TOPICAL SCH (20:01)
[2022-12-14] MEDS: Vancomycin 1,250 MG in NS 0.9% 250 ml 250 ML IVPB SCH (01:32)
[2022-12-14] MEDS ORDERED: Vancomycin Trough Check NOTE FOLLOW UP ONE (08:30)
[2022-12-14] MEDS ORDERED: Morphine 2 MG/ML SYRINGE IV ONE (08:40)
[2022-12-14] MEDS ORDERED: Morphine 2 MG/ML SYRINGE ONE (08:46)
[2022-12-14 09:16] LABS: Creatinine, Serum 0.62 mg/dL (0.67-1.17); eGFR CKD-EPI 124.7 (>60)
[2022-12-14 09:26] LABS: Vancomycin Trough 16.6 mcg/mL
== END 2022-12-14 10:10 | disposition home or self-care (01) | DRG 721 ==
LOC: SUATTDRO 12:49 → MED 12:49
PROVIDERS: ADMIT Hospitalist; ATTEND Internal Medicine